=== PATIENT | male | born 1980 | race Caucasian/White ===

== ENCOUNTER → 2020-05-28 | Outpatient (CLI) | payer OTHER | LOC: M LABSMTC 13:32 | PROVIDERS: ATTEND Pediatrics | DX: Z20.828 Contact with and (suspected) exposure to other viral communicable diseases (principal) ==

== ENCOUNTER 2020-12-23 16:48 | Emergency (ER) | payer OTHER ==
[~2020-12-23] VITALS: Ht 152.4 cm; Wt 97.7 kg
--- NOTE | 2020-12-23 17:54 | REP ---
INDICATION: TRAUMA. COMPARISON: None. TECHNIQUE: Four views of the right ankle are provided. FINDINGS: Ankle mortise is intact. No fracture is seen. No soft tissue swelling is visible. No bony erosive change or arthropathy. IMPRESSION: No fracture seen. <Electronically signed by Rolando Bowers > 12/23/20 0053
--- NOTE | 2020-12-23 17:55 | REP ---
INDICATION: TRAUMA. COMPARISON: None. TECHNIQUE: Four views of the right foot are provided. FINDINGS: Four views of the right foot demonstrate normal bones, joints, and soft tissues. No fracture or subluxation is seen. No opaque foreign body noted. IMPRESSION: Negative right foot series. <Electronically signed by Rolando Bowers > 12/23/20 [id number]
[2020-12-23 22:04] VITALS: BP 136/90
== END 2020-12-23 22:14 | disposition home or self-care (01) ==
LOC: M ED 16:48
DX: S93.401A Sprain of unspecified ligament of right ankle, initial encounter (principal); X58.XXXA Exposure to other specified factors, initial encounter; Y92.009 Unspecified place in unspecified non-institutional (private) residence as the place of occurrence of the external cause; Y93.44 Activity, trampolining; Y99.9 Unspecified external cause status